=== PATIENT | female | born 1935 | race Caucasian/White ===

== ENCOUNTER 2016-11-22 20:56 | Inpatient (IN) | payer MEDICARE ==
[~2016-11-22] VITALS: Ht 175.3 cm; Wt 65.5 kg
[~2016-11-22 20:56] MED LIST: ASPI-130 PO; BENI20TA25 PO; BIOT10004 PO; CALC600T34 PO; CRAN250C2 OR; EZET10 PO; HYDR-3580 PO; RIVA10 PO; VITA100018 OR; VITATAB43 OR
[2016-11-22 21:19] VITALS: BP 137/82; PULSE 54; RESP 16; TEMP 98.4; O2SAT 96
--- NOTE | 2016-11-22 21:24 | PD ---
HPI Chief Complaint: right knee pain Time Seen by Provider: 21:05 Travel History International Travel<30 days: No Contact w/Intl Traveler<30days: No Traveled to known affect area: No History of Present Illness HPI The patient is a 81-year-old female who presents to the emergency department for right knee pain. The patient states she tripped and fell going down 3 stairs earlier today. The patient states her left leg got caught behind her and she fell on a flexed right knee. The patient does have a history of previous injuries to the right knee and underwent surgery by her orthopedic surgeon, Dr. Chambers. The patient states she initially had pain and was unable to bear weight, however, her pain has improved with morphine 4 mg intravenously by EMS. The patient has been unable to bear any weight on the right leg. The knee pain is located around the knee, does not radiate to the ankle or to the hip. She denies any numbness or tingling to the right lower extremity but does note mild edema. Symptoms are moderate, exacerbated after falling, and there are no current alleviating factors. PFSH Past Medical History Anemia: Yes Cancer: Yes (SKIN) Cardiovascular Problems: Yes Endocrine: No Genitourinary: No Hypertension: Yes Musculoskeletal: Yes ([place]) Neurologic: No Reproductive: No Respiratory: No Menopausal: Yes Past Surgical History Gynecologic Surgery: Yes (HYSTERECTOMY AND FIBROIDS) Hysterectomy: Yes Pacemaker: No Social History Alcohol Use: Yes (1 GLASS CHARDONNAY/NIGHT) Tobacco Use: No Substance Use: No Allergies-Medications (Allergen,Severity, Reaction): Coded Allergies: codeine (Unverified Adverse Reaction, Severe, NAUSEA, 11/15/16) Reported Meds & Prescriptions Reported Meds & Active Scripts Active Reported Zetia (Ezetimibe) 10 Mg Tab 10 Mg PO DAILY Atenolol 25 Mg Tab 25 Mg PO DAILY Review of Systems Except as stated in HPI: all other systems reviewed are Neg General / Constitutional: No: Fever HENT: No: Headaches, Neck Pain Cardiovascular: No: Chest Pain or Discomfort Respiratory: No: Shortness of Breath Gastrointestinal: No: Nausea, Vomiting Musculoskeletal: Positive: Limited ROM, Edema, Pain Neurologic: No: Paresthesia, Sensory Disturbance Physical Exam Narrative GENERAL: Awake, alert, pleasant 81-year-old female who appears her stated age and is in no acute respiratory distress. SKIN: Focused skin assessment warm/dry. HEAD: Atraumatic. Normocephalic. EYES: No injection or drainage. ENT: No nasal bleeding or discharge. Mucous membranes pink and moist. NECK: Trachea midline. No JVD. CARDIOVASCULAR: Regular rate and rhythm. No murmur appreciated. RESPIRATORY: No accessory muscle use. Clear to auscultation. Breath sounds equal bilaterally. GASTROINTESTINAL: Abdomen soft, non-tender, nondistended. MUSCULOSKELETAL: The patient has mild edema of the right knee, patella appears midline, patient has limited ability to flex and extend the knee secondary to pain. Passive range of motion exacerbates her pain. The feet are cool distally , but pulses are present. She is able to move the feet bilaterally, and is able to fully flex the left hip and left knee, but significant limited range of motion of the right hip and knee secondary to pain around the right knee. NEUROLOGICAL: Awake and alert. No obvious cranial nerve deficits. Motor grossly within normal limits. Normal speech. Sensation is intact to soft touch right lower extremity. PSYCHIATRIC: Appropriate mood and affect; insight and judgment normal. Data Data Last Documented VS Vital Signs Date Time Temp Pulse Resp B/P (MAP) Pulse Ox O2 Delivery O2 Flow Rate FiO2 11/22/16 22:50 98.5 60 16 112/55 (74) 96 Room Air Orders Orders Knee, Complete (4vws) (11/22/16 ) Complete Blood Count With Diff (11/22/16 22:01) Comprehensive Metabolic Panel (11/22/16 22:01) Electrocardiogram (11/22/16 ) Chest, Single Ap (11/22/16 ) Type And Screen (11/22/16 22:01) Splinting (11/22/16 ) Morphine Inj (Morphine Inj) (11/22/16 22:30) Fiberglass Long Leg Splint Ad (11/22/16 ) Admit Order (Ed Use Only) (11/22/16 23:07) Labs Laboratory Tests Test 11/22/16 22:10 White Blood Count 7.4 TH/MM3 Red Blood Count 3.45 MIL/MM3 Hemoglobin 11.1 GM/DL Hematocrit 33.0 % Mean Corpuscular Volume 95.8 FL Mean Corpuscular Hemoglobin 32.3 PG Mean Corpuscular Hemoglobin Concent 33.7 % Red Cell Distribution Width 14.1 % Platelet Count 182 TH/MM3 Mean Platelet Volume 7.2 FL Neutrophils (%) (Auto) 80.3 % Lymphocytes (%) (Auto) 11.6 % Monocytes (%) (Auto) 6.7 % Eosinophils (%) (Auto) 0.8 % Basophils (%) (Auto) 0.6 % Neutrophils # (Auto) 6.0 TH/MM3 Lymphocytes # (Auto) 0.9 TH/MM3 Monocytes # (Auto) 0.5 TH/MM3 Eosinophils # (Auto) 0.1 TH/MM3 Basophils # (Auto) 0.0 TH/MM3 CBC Comment DIFF FINAL Differential Comment Blood Urea Nitrogen 22 MG/DL Creatinine 0.87 MG/DL Random Glucose 116 MG/DL Total Protein 6.4 GM/DL Albumin 3.2 GM/DL Calcium Level 8.3 MG/DL Alkaline Phosphatase 40 U/L Aspartate Amino Transf (AST/SGOT) 21 U/L Alanine Aminotransferase (ALT/SGPT) 19 U/L Total Bilirubin 0.6 MG/DL Sodium Level 139 MEQ/L Potassium Level 4.2 MEQ/L Chloride Level 104 MEQ/L Carbon Dioxide Level 28.8 MEQ/L Anion Gap 6 MEQ/L Estimat Glomerular Filtration Rate 62 ML/MIN [facility] Medical Decision Making Medical Screen Exam Complete: Yes Emergency Medical Condition: Yes Medical Record Reviewed: Yes Interpretation(s) X-ray of the right knee reveals distal right femur fracture Chest x-ray reveals questionable nodularity in the right hilar region, recommend CT for further evaluation EKG reveals normal sinus rhythm with a rate of 63. PVC every third beat. Laboratory Tests Test 11/22/16 22:10 White Blood Count 7.4 TH/MM3 Red Blood Count 3.45 MIL/MM3 Hemoglobin 11.1 GM/DL Hematocrit 33.0 % Mean Corpuscular Volume 95.8 FL Mean Corpuscular Hemoglobin 32.3 PG Mean Corpuscular Hemoglobin Concent 33.7 % Red Cell Distribution Width 14.1 % Platelet Count 182 TH/MM3 Mean Platelet Volume 7.2 FL Neutrophils (%) (Auto) 80.3 % Lymphocytes (%) (Auto) 11.6 % Monocytes (%) (Auto) 6.7 % Eosinophils (%) (Auto) 0.8 % Basophils (%) (Auto) 0.6 % Neutrophils # (Auto) 6.0 TH/MM3 Lymphocytes # (Auto) 0.9 TH/MM3 Monocytes # (Auto) 0.5 TH/MM3 Eosinophils # (Auto) 0.1 TH/MM3 Basophils # (Auto) 0.0 TH/MM3 CBC Comment DIFF FINAL Differential Comment Blood Urea Nitrogen 22 MG/DL Creatinine 0.87 MG/DL Random Glucose 116 MG/DL Total Protein 6.4 GM/DL Albumin 3.2 GM/DL Calcium Level 8.3 MG/DL Alkaline Phosphatase 40 U/L Aspartate Amino Transf (AST/SGOT) 21 U/L Alanine Aminotransferase (ALT/SGPT) 19 U/L Total Bilirubin 0.6 MG/DL Sodium Level 139 MEQ/L Potassium Level 4.2 MEQ/L Chloride Level 104 MEQ/L Carbon Dioxide Level 28.8 MEQ/L Anion Gap 6 MEQ/L Estimat Glomerular Filtration Rate 62 ML/MIN Differential Diagnosis Differential diagnosis includes fracture, dislocation, sprain, strain, effusion , contusion. Narrative Course X-ray of the right knee was obtained. X-ray the right knee reveals a distal right femur fracture. Therefore, labs were drawn and sent, IV was established, the patient is placed on cardiac telemetry monitoring continuous pulse ox imaging monitoring. EKG was ordered and interpreted. Chest x-ray was obtained. Type and screen and coags were sent to lab. The patient's distal femur fracture was placed in a posterior long-leg splint, the patient was provided morphine 4 mg intravenously for pain. The on-call medical service will be paged for admission, the patient's orthopedic surgeon is Dr. Chambers. A consult will be placed to Dr. Chambers, routine, for evaluation tomorrow for operative management. The patient will be kept nothing by mouth after midnight. Physician Communication Physician Communication [facility] were paged for admission. I discussed the patient with Dr. Carrizales who agrees with admission. Diagnosis Primary Impression: Closed fracture of right distal femur Qualified Codes: S72.401A - Unspecified fracture of lower end of right femur, initial encounter for closed fracture Admitting Information Admitting Physician Requests: Admit Condition: Stable Vlad Briseno MD Nov 22, 2016 21:24
[2016-11-22] MEDS ORDERED: ATEN25TA PO (21:30)
[2016-11-22] MEDS ORDERED: ZETI10TA5 PO (21:30)
--- NOTE | 2016-11-22 21:55 | RADRPT ---
EXAM DATE/TIME: 11/22/2016 21:29 [facility] COMPARISON: No previous studies available for comparison. INDICATIONS : Right knee pain after fall. MEDICAL HISTORY : None. SURGICAL HISTORY : ORIF right tibia. ENCOUNTER: Initial ACUITY: 1 day PAIN SCORE: 10/10 LOCATION: Right knee. FINDINGS: 3 views of the right knee demonstrate undermineralization of the bones. There is an oblique comminute d displaced fracture of the distal femoral metaphysis and epiphysis. A fracture line extends into the intercondylar notch. The lateral fragment is displaced by approximately 7 mm. No significant joint e ffusion is identified. There is hardware in the proximal tibia on the medial lateral aspect with mult iple interlocking screws likely related to prior tibial plateau fracture repair. The hardware demonst rates no acute finding. No acute soft tissue abnormality is identified. CONCLUSION: 1. Under mineralized bones with oblique comminuted displaced fracture of the distal femoral metaphysi s and epiphysis. Fracture extends into the knee joint and likely into the intercondylar notch. 2. The proximal tibial hardware demonstrates no acute abnormality. Foster Loja MD on November 22, 2016 at 21:51 Board Certified Radiologist. This report was verified electronically.
[2016-11-22] MEDS ORDERED: MORPHINE SULFATE 4 MG/ML INJ IV PUSH ONE (22:30)
[2016-11-22 22:41] LABS: BASOPHIL % 0.6 % (0.0-2.0); EOSINOPHIL # 0.1 TH/MM3 (0-0.4); EOSINOPHIL % 0.8 % (0.0-4.0); HEMO FLAGS DIFF FINAL; LYMPH % 11.6 % (9.0-44.0); LYMPHOCYTE # 0.9 TH/MM3 (1.0-4.8); MEAN CELL VOLUME 95.8 FL (80.0-100.0); MEAN CORPUSCULAR HEMOGLOBIN 32.3 PG (27.0-34.0); MEAN CORPUSCULAR HGB CONC 33.7 % (32.0-36.0); MONO % 6.7 % (0.0-8.0); NEUT % 80.3 % (16.0-70.0); PLATELET COUNT 182 TH/MM3 (150-450); RED BLOOD COUNT 3.45 MIL/MM3 (4.00-5.30); RED CELL DISTRIBUTION WIDTH 14.1 % (11.6-17.2); WHITE BLOOD COUNT 7.4 TH/MM3 (4.0-11.0)
[2016-11-22 22:50] VITALS: BP 112/55; PULSE 60; RESP 16; TEMP 98.5; O2SAT 96; O2SAT 98
--- NOTE | 2016-11-22 22:52 | RADRPT ---
EXAM DATE/TIME: 11/22/2016 22:16 [facility] COMPARISON: No previous studies available for comparison. INDICATIONS : Short of breath. MEDICAL HISTORY : None. SURGICAL HISTORY : None. ENCOUNTER: Initial ACUITY: 1 day PAIN SCORE: 0/10 LOCATION: Bilateral chest FINDINGS: Portable AP view of the chest demonstrates a normal-sized cardiac silhouette. Lungs are underinflated . There is questionable nodularity or air space opacity in the right hilar/infrahilar region. No pneu mothorax or pleural effusion is visualized. There is symmetric biapical scar. There is atelectasis at the lung bases. Bones and soft tissues demonstrate no acute finding. CONCLUSION: Questionable airspace opacity and nodularity overlying the right hilar and infrahilar region. Since n o prior imaging studies available consider chest CT to further evaluate. Foster Loja MD on November 22, 2016 at 22:49 Board Certified Radiologist. This report was verified electronically.
[2016-11-22 22:58] LABS: ALT (GPT) 19 U/L (10-53)
[2016-11-22 23:00] LABS: ALKALINE PHOSPHATASE 40 U/L (45-117); TOTAL BILIRUBIN ADULT 0.6 MG/DL (0.2-1.0)
[2016-11-22 23:05] LABS: ANION GAP 6 MEQ/L (5-15); AST (GOT) 21 U/L (15-37); BICARBONATE 28.8 MEQ/L (21.0-32.0); BLOOD UREA NITROGEN 22 MG/DL (7-18); CHLORIDE 104 MEQ/L (98-107); GLOMERULAR FILTRATION RATE 62 ML/MIN (>89); POTASSIUM 4.2 MEQ/L (3.5-5.1); SODIUM (NA) 139 MEQ/L (136-145)
[2016-11-23] VITALS (7 sets, daily range): BP systolic 97–150; BP diastolic 45–62; PULSE 60–79; RESP 16–18; TEMP 96.3–97.5; O2SAT 94–100
[2016-11-23] MEDS ORDERED: SODIUM CHLORIDE 0.9% FLUSH 10 ML FLUSH IV FLUSH PRN
[2016-11-23] MEDS ORDERED: ONDANSETRON HCL 4 MG/2 ML VIAL IVP PRN
[2016-11-23] MEDS ORDERED: MORPHINE SULFATE 4 MG/ML INJ IV PUSH ONE
[2016-11-23] MEDS ORDERED: SODIUM CHLORID 0.9% 500 ML IV PRN (01:45)
[2016-11-23] MEDS ORDERED: LACTATED RINGER'S 1000 ML IV PRN (01:45)
[2016-11-23] MEDS ORDERED: CHLORHEXIDINE GLUCONATE 2 % 1 PACK (2 CLOTHS) TOPICAL PRN (01:45)
[2016-11-23] MEDS ORDERED: POVIDONE IODINE 5% (ANTISEPSIS KIT) 4 APPLICATIONS EACH NARE PRN (01:45)
[2016-11-23] MEDS ORDERED: INSULIN HUMAN REGULAR 1,000 UNITS/10 ML VIAL SQ PRN (01:45)
[2016-11-23] MEDS ORDERED: METOPROLOL TARTRATE 25 MG TAB PO PRN (01:45)
--- NOTE | 2016-11-23 04:45 | HHI.HP ---
HPI Service [facility] Primary Care Physician No Primary Care Physician Admission Diagnosis distal right femur fracture Diagnoses: (1) Closed fracture of right distal femur (2) PVC's (premature ventricular contractions) Chief Complaint: Right leg pain following fall at home Travel History International Travel<30 Days: No Contact w/Intl Traveler <30 Da: No Traveled to Known Affected Are: No History of Present Illness Written by Annelise Nayak, acting as scribe for Dr. Carrizales on 11/23/16 at 04:45. Coming down some steps, wearing socks, slipped because of socks, and fell down. She had family call 911 and was brought here. She had a previous repair by Dr. Chambers. She denies any syncope or head injury associated with the fall. She had severe right leg pain following the fall. Denies any CP, palpitations, dizziness, diaphoresis, and nausea prior to fall. Past couple of weeks: denies fever, nausea, vomiting, diarrhea, shortness of breath, hematuria, black or bloody stool, chest pain, or diaphoresis. . Review of Systems Except as stated in HPI: all other systems reviewed are Neg Past Family Social History Past Medical History Hypertension PVCs - on atenolol Hyperlipidemia Skin cancer GERD/heartburn Denies CAD, CHF, atrial fibrillation, COPD, asthma, emphysema, liver problems, DVT, PE, CVA, seizures, or thyroid problems . Past Surgical History Right wrist and elbow surgery Right tibia and fibula repair about four years ago Skin scraping done 2 weeks ago - one basal cell, one was precancerous Hysterectomy . Reported Medications Vitamins Vitamin D3 Reported Meds & Active Scripts Active Reported Zetia (Ezetimibe) 10 Mg Tab 10 Mg PO DAILY Atenolol 25 Mg Tab 25 Mg PO DAILY . Allergies: Coded Allergies: codeine (Unverified Adverse Reaction, Severe, NAUSEA, 11/15/16) Active Ordered Medications Current Medications Morphine Sulfate (Morphine Inj) 4 mg ONCE ONCE IV PUSH Last administered on t 22:54; Start 11/22/16 at 22:30; Stop 11/22/16 at 22:31; Status DC Sodium Chloride (NS Flush) 2 ml UNSCH PRN IV FLUSH FLUSH AFTER USING IV ACCESS ; Start 11/23/16 at 00:00 Sodium Chloride (NS Flush) 2 ml BID IV FLUSH ; Start 11/23/16 at 09:00 Ondansetron HCl (Zofran Inj) 4 mg Q6H PRN IVP NAUSEA OR VOMITING Last administered on 11/23/16 00:17; Start 11/23/16 at 00:00 Naloxone HCl (Narcan Inj) 0.4 mg UNSCH PRN IV SEE LABEL COMMENTS; Start at 00:00 Morphine Sulfate (Morphine Inj) 4 mg ONCE ONCE IV PUSH Last administered on 00:17; Start 11/23/16 at 00:00; Stop 11/23/16 at 00:01; Status DC Lactated Ringer's 1,000 ml @ 30 mls/hr Q24H PRN IV SEE LABEL COMMENTS; Start at 01:45; Stop 11/26/16 at 01:44 Sodium Chloride 500 ml @ 30 mls/hr [id number] PRN IV SEE LABEL COMMENTS; Start at 01:45; Stop 11/26/16 at 01:44 Metoprolol Tartrate (Lopressor) 25 mg RN SUPPORT SERVICES PRN PO SEE LABEL COMMENTS; Start 11/23/16 at 01:45; Stop 11/26/16 at 01:44 Povidone Iodine (Betadine 5% Antisepsis Kit) 1 applic RN SUPPORT SERVICES PRN EACH NARE SEE LABEL COMMENTS; Start 11/23/16 at 01:45; Stop 11/26/16 at 01:44 Chlorhexidine Gluconate (Chlorhexidine 2% Cloth) 3 pack RN SUPPORT SERVICES PRN TOPICAL SEE LABEL COMMENTS; Start 11/23/16 at 01:45; Stop 11/26/16 at 01:44 Insulin Human Regular (NovoLIN R INJ) See Protocol Table ... RN SUPPORT SERVICES PRN SQ SEE PROTOCOL TABLE; Start 11/23/16 at 01:45; Stop 11/26/16 at 01:44 . Family History Father IN Mother lived to age 93, from complications related to aging . Social History Tobacco: denies Alcohol: denies Illicit Drugs: denies . Physical Exam Vital Signs Vital Signs Date Time Temp Pulse Resp B/P (MAP) Pulse Ox O2 Delivery O2 Flow Rate FiO2 11/23/16 01:30 96.7 79 18 118/55 (76) 98 11/22/16 22:50 98.5 60 16 112/55 (74) 98 Room Air 11/22/16 21:19 98.4 54 16 137/82 (100) 96 Physical Exam GENERAL: This is an elderly female patient who appears younger than her stated age, in no apparent distress. SKIN: No rashes. Cool and dry. Left chest, erythema, right chest appears to have punch biopsy site - do not appear infected. HEAD: Atraumatic. Normocephalic. EYES: No scleral icterus. No injection or drainage. ENT: Nose without bleeding, purulent drainage. NECK: Trachea midline. No JVD. CARDIOVASCULAR: Regular rate and rhythm without murmurs, gallops, or rubs. RESPIRATORY: Clear to auscultation. Breath sounds equal bilaterally. No wheezes , rales, or rhonchi. GASTROINTESTINAL: Abdomen soft, non-tender, nondistended. No guarding. MUSCULOSKELETAL: Extremities without clubbing, cyanosis, or edema. No calf tenderness. NEUROLOGICAL: Awake and alert. Motor and sensory grossly within normal limits. Normal speech. . Laboratory Laboratory Tests Test 11/22/16 22:10 White Blood Count 7.4 Red Blood Count 3.45 Hemoglobin 11.1 Hematocrit 33.0 Mean Corpuscular Volume 95.8 Mean Corpuscular Hemoglobin 32.3 Mean Corpuscular Hemoglobin Concent 33.7 Red Cell Distribution Width 14.1 Platelet Count 182 Mean Platelet Volume 7.2 Neutrophils (%) (Auto) 80.3 Lymphocytes (%) (Auto) 11.6 Monocytes (%) (Auto) 6.7 Eosinophils (%) (Auto) 0.8 Basophils (%) (Auto) 0.6 Neutrophils # (Auto) 6.0 Lymphocytes # (Auto) 0.9 Monocytes # (Auto) 0.5 Eosinophils # (Auto) 0.1 Basophils # (Auto) 0.0 CBC Comment DIFF FINAL Differential Comment Blood Urea Nitrogen 22 Creatinine 0.87 Random Glucose 116 Total Protein 6.4 Albumin 3.2 Calcium Level 8.3 Alkaline Phosphatase 40 Aspartate Amino Transf (AST/SGOT) 21 Alanine Aminotransferase (ALT/SGPT) 19 Total Bilirubin 0.6 Sodium Level 139 Potassium Level 4.2 Chloride Level 104 Carbon Dioxide Level 28.8 Anion Gap 6 Estimat Glomerular Filtration Rate 62 Result Diagram: 11/22/16 2210 11/22/16 2210 Imaging Last Impressions Knee X-Ray 11/22/16 0000 Signed Impressions: Service Date/Time: Tuesday, November 22, 2016 21:29 - CONCLUSION: 1. Under mineralized bones with oblique comminuted displaced fracture of the distal femoral metaphysis and epiphysis. Fracture extends into the knee joint and likely into the intercondylar notch. 2. The proximal tibial hardware demonstrates no acute abnormality. Foster Loja MD . Caprini VTE Risk Assessment Caprini VTE Risk Assessment: Mod/High Risk (score >= 2) Caprini Risk Assessment Model Point Value = 1 Point Value = 2 Point Value = 3 Point Value = 5 Age 41-60 Minor surgery BMI > 25 kg/m2 Swollen legs Varicose veins or History of unexplained or recurrent spontaneous Oral contraceptives or hormone replacement Sepsis (< 1 month) Serious lung disease, including pneumonia (< 1 month) Abnormal pulmonary function Acute myocardial infarction Congestive heart failure (< 1 month) History of inflammatory bowel disease Medical patient at bed rest Age 61-74 Arthroscopic surgery Major open surgery (> 45 min) Laparoscopic surgery (> 45 min) Malignancy Confined to bed (> 72 hours) Immobilizing plaster cast Central venous access Age >= 75 History of VTE Family history of VTE Factor V Leiden Prothrombin [id number] Lupus anticoagulant Anticardiolipin antibodies Elevated serum homocysteine Heparin-induced thrombocytopenia Other congenital or acquired thrombophilia Stroke (< 1 month) Elective arthroplasty Hip, pelvis, or leg fracture Acute spinal cord injury (< 1 month) Prophylaxis Regimen Total Risk Factor Score Risk Level Prophylaxis Regimen 0-1 Low Early ambulation 2 Moderate Order ONE of the following: *Sequential Compression Device (SCD) *Heparin 5000 units SQ BID 3-4 Higher Order ONE of the following medications: *Heparin 5000 units SQ TID *Enoxaparin/Lovenox 40 mg SQ daily (WT < 150 kg, CrCl > 30 mL/min) *Enoxaparin/Lovenox 30 mg SQ daily (WT < 150 kg, CrCl > 10-29 mL/min) *Enoxaparin/Lovenox 30 mg SQ BID (WT < 150 kg, CrCl > 30 mL/min) AND/OR *Sequential Compression Device (SCD) 5 or more Highest Order ONE of the following medications: *Heparin 5000 units SQ TID (Preferred with Epidurals) *Enoxaparin/Lovenox 40 mg SQ daily (WT < 150 kg, CrCl > 30 mL/min) *Enoxaparin/Lovenox 30 mg SQ daily (WT < 150 kg, CrCl > 10-29 mL/min) *Enoxaparin/Lovenox 30 mg SQ BID (WT < 150 kg, CrCl > 30 mL/min) AND *Sequential Compression Device (SCD) Assessment and Plan Problem List: (1) Closed fracture of right distal femur ICD Code: S72.401A - Unspecified fracture of lower end of right femur, initial encounter for closed fracture Status: Acute (2) PVC's (premature ventricular contractions) ICD Code: I49.3 - Ventricular premature depolarization Assessment and Plan Closed fracture of the right distal femur - Consult orthopedic surgeon - Dr. Chambers - NPO History of PVCs - continuous cardiac telemetry to monitor for cardiac arrhythmia - continue home atenolol Hyperlipidemia - continue home zetia Chest wall skin scrapping site - monitor for healing/infection - consult wound care nurse if needed DVT prophylaxis - TEDs/SCDs for now - chemical prophylaxis post op This note was transcribed by kristen [Annelise Nayak]. I, Dr. Dank Carrizales personally performed the history, physical exam, and medical decision making; and confirmed the accuracy of the information in the transcribed note. Authenticated by Dr. Dank Carrizales on 11/23/16 at 04:45. . Discussed Condition With ER physician, RN, patient, and patient's Physician Certification 2 Midnight Certification Type: Admission for Inpatient Services Order for Inpatient Services The services are ordered in accordance with Medicare regulations or non- Medicare payer requirements, as applicable. In the case of services not specified as inpatient-only, they are appropriately provided as inpatient services in accordance with the 2-midnight benchmark. Estimated LOS (days): 3 days is the estimated time the patient will need to remain in the hospital, assuming treatment plan goals are met and no additional complications. Post-Hospital Plan: Not yet determined Problem Qualifiers (1) Closed fracture of right distal femur: Qualified Codes: S72.401A - Unspecified fracture of lower end of right femur, initial encounter for closed fracture Annelise Nayak Nov 23, 2016 04:45 Dank Carrizales MD Nov 23, 2016 06:52
[2016-11-23] MEDS ORDERED: VANCOMYCIN HCL 1000 MG VIAL ONE (07:01)
[2016-11-23] MEDS ORDERED: SODIUM CHLOR 0.9% 250 ML INJ 250 ML ONE (07:01)
[2016-11-23] MEDS ORDERED: GENTAMICIN SULFATE 80 MG/2 ML VIAL ONE (07:01)
--- NOTE | 2016-11-23 07:18 | MB ---
cc: ROBINJAY DATE OF CONSULTATION 11/23/2016 DATE OF ADMISSION 11/22/2016 REASON FOR CONSULTATION Right distal femur fracture. CONSULTING PHYSICIAN Dr. Lowell Cespedes HISTORY Anita is an 81-year-old female who was walking down steps. She was in socks. She slipped because of the socks. She had immediate right leg pain. She also had deformity of her right knee. She presented to the emergency room where x-rays revealed a displaced right distal femur fracture. She is currently awake and alert on the orthopedic floor. On complaint is her right knee. She has not hit her head. She had no dizziness or syncope. Pain is worse with movement. PAST MEDICAL HISTORY ILLNESSES 1. Hypertension 2. History of PVCs. 3. High cholesterol 4. History of skin cancer 5. Reflux SURGERIES 1. Right tibia ORIF 2. Hysterectomy 3. Right wrist and elbow surgery. MEDICATIONS Medications include: 1. Multivitamins 2. Vitamin D3 3. Zetia 4. Atenolol ALLERGIES CODEINE FAMILY HISTORY Positive for myocardial infarction in a father. Her mother lived to age 93. SOCIAL HISTORY The patient denies alcohol, tobacco or drug use. She lives at home with her . REVIEW OF SYSTEMS The patient denies headache, visual changes, neck pain, chest pain, shortness of breath, abdominal pain, asthma or recent weight loss. She complains of right knee pain. PHYSICAL EXAMINATION The patient is a well-developed, well-nourished 81-year female in no acute distress. She is awake and alert. She is alert and oriented x3. VITAL SIGNS: Temperature 97.0, pulse 69, respirations 18, blood pressure 150/62, O2 sat is 94% on room air. HEAD: The patient is normocephalic. EYES: Pupils are equal. NECK: Soft, nontender. Trachea is midline. ABDOMEN: Soft, nontender, nondistended. EXTREMITIES: Examination of bilateral upper extremities reveals no pain with shoulder, elbow or wrist motion. Skin is intact in both hands. Radial pulses are palpable. Engineering Associate strength is +5. Examination of the left leg reveals no pain with hip, knee or ankle motion. Skin is intact. Dorsalis pedis pulses palpable. Skin is intact. Examination of the right leg reveals no tenderness her hip. She is diffusely tender around the knee. There is mild swelling present. She has pain with any knee motion. Calf and thigh compartments are soft. Dorsalis pedis pulses are palpable. Sensation is intact in the right foot. X-RAYS X-rays of right knee reviewed. X-rays reveal an intra-articular right distal femur supracondylar fracture. IMPRESSION 1. Right distal femur intra-articular fracture. 2. Probable osteoporosis 3. Hypertension PLAN Treatment options were discussed with the patient. At this point, I would recommend open reduction, internal fixation of right distal femur. The risks of surgery include bleeding, infection, injury to arteries, nerves and blood vessels, nonunion, malunion, painful hardware as well as medical complications including blood clot, stroke, heart attack and . All questions were answered. I will plan on surgery today. A mid-level provider in my office, nurse practitioner or PA, may see this patient on a follow-up basis and continue to implement the objective of this plan including: Starting or adjusting medications, injections of muscle, tendon, bursa or joints, cast application, orthotic or brace application, physical therapy, further radiographic studies including x-ray, MRI, CT, ultrasounds or bone scan, vascular studies, neurologic studies, or other specialist consultations, and proceeding with surgical management as appropriate. MD NICHOLAS Barrett/PONCHO /6:56 AM /7:07 AM
[2016-11-23] MEDS ORDERED: FAMOTIDINE 20 MG/2 ML VIAL ONE (07:20)
[2016-11-23] MEDS ORDERED: MIDAZOLAM HCL 2 MG/2 ML VIAL ONE (07:20)
[2016-11-23] MEDS ORDERED: TRANEXAMIC ACID IV SCH (07:30)
[2016-11-23] MEDS ORDERED: SODIUM CHLORIDE 0.9% IV SCH (07:30)
[2016-11-23] MEDS ORDERED: ceFAZolin INJ 1,000 MG VIAL ONE (08:39)
[2016-11-23] MEDS ORDERED: MISCELLANEOUS NURSING INFORMATION XX PRN (09:15)
[2016-11-23] MEDS ORDERED: Post-op Orders (for Pharmacy) MISC XX ONE (09:15)
[2016-11-23] MEDS ORDERED: SODIUM CHLORIDE 0.9% FLUSH 5 ML FLUSH IVF PRN (09:15)
[2016-11-23] MEDS ORDERED: NALOXONE HCL 0.4 MG/ML AMP IV PRN ×2 (09:15)
[2016-11-23] MEDS ORDERED: MORPHINE SULFATE 4 MG/ML INJ IV PUSH PRN (09:15)
[2016-11-23] MEDS ORDERED: diphenhydrAMINE HCL 25 MG CAP PO PRN (09:15)
--- NOTE | 2016-11-23 09:18 | PD.OP ---
cc: Shorty Browne MD Operative Report Date of Surgery: Nov 23, 2016 Preoperative Diagnosis: Displaced right distal femur intra-articular supracondylar fracture Postoperative Diagnosis: Procedure: Open reduction internal fixation right distal femur intra-articular fracture Anesthesia: Spinal Surgeon: Shorty Browne Joinery Setter Out(s): Jaspal Solano PA-C The surgical procedure was assisted by my physician paraprofessional education assistant. My P.A. presence was necessary throughout this case for the manipulation and positioning of the surgical extremity. My P.A. was assisting me throughout the duration of this procedure. The skill set of a physician paraprofessional education assistant was medically necessary to complete this procedure. During the surgical case the compounding technician was working at the back table and the physician paraprofessional education assistant was directly assisting me. Operation and Findings: Anita was seen and evaluated preoperatively. She was found to have a displaced right distal femur intra-articular fracture. Informed consent was obtained, operative site was marked. Patient was brought to the OR, placed on OR table, and given IV sedation with GETA. IV antibiotics were administered and timeout procedure was performed. The operative leg was prepped with alcohol , followed with Hibiclens, draped in usual sterile fashion. A timeout procedure was performed. The procedure began with a -inch incision over the lateral aspect of the right distal femur. Subcutaneous tissue was dissected with Bovie. Iliotibial band was split in line with fibers. At this point the fracture was visualized. Traction was applied. Fracture was manipulated. Lateral condyle fragment was reduced first. This keyed into anatomic position along the shaft. The articular surface was now visualized. The medial condyle was now reduced to the lateral condyle. This also keyed into anatomic alignment. Steinmann pins were used to hold provisional fixation. A periarticular clamp was used to compress the medial and lateral condyles together. The fracture reduced into excellent alignment. Steinmann pins were used to hold provisional fixation. At this point attention was turned to plate placement. An ITS lateral condylar plate was selected and attached to the insertion handle jig. The plate was placed underneath the vastus lateralis. Steinmann pins were used to hold the plate to bone. Multiplanar fluoroscopy confirmed appropriate placement of plate. Multiple 4.5 cortical screws were now placed in percutaneous fashion through the plate. The plate was compressed to bone. Multiple locking screws were now placed in the distal segment of the distal femur. Additional locking screws were placed into the femoral shaft. All screws were predrilled and premeasured for appropriate length. Final fluoroscopy revealed excellent alignment of fracture with well-placed hardware. Wound was thoroughly irrigated. Fascia was closed with #1 Vicryl. Subcutaneous tissue was closed with 3-0 Vicryl. Skin was closed with nubia. Sterile dressings were applied. The patient was placed into a knee immobilizer and transferred to recovery in stable condition. Needle and sponge counts were correct. Shorty Browne MD Nov 23, 2016 09:18
[2016-11-23] MEDS ORDERED: DO NOT ADM ANY ANTICOAGULANT DRUGS PRN (09:19)
[2016-11-23] MEDS ORDERED: WALKER/ADULT/FO1 MIS (09:22)
[2016-11-23] MEDS ORDERED: CALCTAB19 PO (09:22)
[2016-11-23] MEDS ORDERED: VITA2000 PO (09:22)
[2016-11-23] MEDS ORDERED: HYDR-3580 PO (09:22)
[2016-11-23] MEDS ORDERED: XARE10TA PO (09:22)
[2016-11-23] MEDS ORDERED: ERGO1CAP30 PO (09:22)
[2016-11-23] MEDS: LACTATED RINGER'S 1000 ML INJ 1,000 ML IV SCH ×2 (10:00→19:59)
[2016-11-23] MEDS: CALCIUM/VITAMIN D 250 MG/125 U TAB PO SCH ×2 (11:41→17:44)
[2016-11-23] MEDS: ACETAMINOPHEN/HYDROcodone 325 MG/7.5 MG TAB PO PRN (11:42)
--- NOTE | 2016-11-23 12:13 | RADRPT ---
EXAM DATE/TIME: 11/23/2016 08:47 [facility] COMPARISON: No previous studies available for comparison. INDICATIONS : Reduction with screw and plate placement right distal femur. MEDICAL HISTORY : displaced fracture of the distal femoral SURGICAL HISTORY : Orif rt tib fib. ENCOUNTER: Subsequent ACUITY: 2 days PAIN SCORE: Non-responsive. LOCATION: Right Femur. FINDINGS: 6 spot intraoperative fluoroscopic views of the right femur demonstrate plate and screw fixation of t he distal femur across a comminuted distal femoral metaphyseal fracture with excellent alignment. Johnnie te and screw fixation of the proximal tibia is also noted. CONCLUSION: Postoperative changes. Zoltan Jett MD on November 23, 2016 at 12:10 Board Certified Radiologist. This report was verified electronically.
[2016-11-23] MEDS ORDERED: PHENYLEPH/NS 1000 MCG/10 ML SYR IV ONE (15:05)
[2016-11-23] MEDS ORDERED: ONDANSETRON HCL 4 MG/2 ML VIAL IV PUSH ONE (15:05)
[2016-11-23] MEDS ORDERED: PROPOFOL 200 MG/20 ML AMP IV ONE (15:05)
[2016-11-23] MEDS ORDERED: ePHEDrine/NS 25 MG/5 ML SYR IV ONE (15:05)
[2016-11-23] MEDS ORDERED: SODIUM CHLOR 0.9% 250 ML INJ 250 ML IV ONE (15:05)
[2016-11-23] MEDS ORDERED: LACTATED RINGER'S 1000 ML INJ 1,000 ML IV ONE (15:05)
[2016-11-23 15:18] LABS: AUTOMATED NEUTROPHIL # 6.5 TH/MM3 (1.8-7.7); BASOPHIL % 0.4 % (0.0-2.0); EOSINOPHIL % 0.3 % (0.0-4.0); HEMATOCRIT 27.8 % (35.0-46.0); HEMO FLAGS DIFF FINAL; LYMPH % 9.4 % (9.0-44.0); LYMPHOCYTE # 0.7 TH/MM3 (1.0-4.8); MEAN CELL VOLUME 96.6 FL (80.0-100.0); MEAN CORPUSCULAR HEMOGLOBIN 31.7 PG (27.0-34.0); MEAN CORPUSCULAR HGB CONC 32.8 % (32.0-36.0); NEUT % 82.9 % (16.0-70.0); PLATELET COUNT 159 TH/MM3 (150-450); RED BLOOD COUNT 2.87 MIL/MM3 (4.00-5.30); RED CELL DISTRIBUTION WIDTH 14.1 % (11.6-17.2); WHITE BLOOD COUNT 7.9 TH/MM3 (4.0-11.0)
[2016-11-23 15:42] LABS: BICARBONATE 28.4 MEQ/L (21.0-32.0); POTASSIUM 4.1 MEQ/L (3.5-5.1)
[2016-11-23] MEDS: ceFAZolin 2 GM PREMIX 50 ML IV SCH (17:43)
[2016-11-23] MEDS: EZETIMIBE 10 MG TAB PO SCH (17:44)
[2016-11-23] MEDS: ATENOLOL 25 MG TAB PO SCH (17:44)
--- NOTE | 2016-11-23 19:42 | EKG ---
Date Performed: 11/22/2016 Time Performed: 23:06:35 PTAGE: 81 years EKG: Sinus rhythm WITH FREQUENT VENTRICULAR PREMATURE COMPLEXES ABNORMAL RHYTHM ECG PREVIOUS TRACING : 08/23/2011 01.46 Compared to the previous tracing PVCs present DOCTOR: Sejal Byrd Interpretating Date/Time 11/23/2016 19:41:34
[2016-11-23] MEDS: DOCUSATE SODIUM 50 MG/SENNA 8.6 MG TAB PO SCH (19:55)
[2016-11-23] MEDS: VANCOMYCIN INJ 1,000 MG in SODIUM CHLOR 0.9% 250 ML INJ 250 ML IV SCH (19:55)
[2016-11-23] MEDS: SODIUM CHLORIDE 0.9% FLUSH 5 ML FLUSH IVF SCH (19:55)
[2016-11-23] MEDS: SODIUM CHLORIDE 0.9% FLUSH 10 ML FLUSH IV FLUSH SCH ×2 (19:55→19:56)
[2016-11-24] VITALS (7 sets, daily range): BP systolic 109–131; BP diastolic 55–60; PULSE 56–81; RESP 16–17; TEMP 96.7–99; O2SAT 95–100
[2016-11-24] MEDS: ceFAZolin 2 GM PREMIX 50 ML IV SCH ×3 (00:51→17:37)
[2016-11-24] MEDS ORDERED: BACITRACIN TOP OINT 15 GM TUBE TOPICAL PRN (03:00)
--- NOTE | 2016-11-24 06:51 | PD.ORT.PN ---
Subjective Subjective Remarks POD 1 s/p ORIF right distal femur fx -doing well. reports pain but controlled. has not been out of bed yet Objective Vitals Vital Signs Date Time Temp Pulse Resp B/P (MAP) Pulse Ox O2 Delivery O2 Flow Rate FiO2 11/24/16 03:57 56 11/24/16 03:51 96.7 81 17 120/57 (78) 97 11/23/16 23:15 96.3 77 18 102/52 (69) 95 11/23/16 20:00 97.5 60 17 107/52 (70) 99 11/23/16 16:00 96.6 73 16 97/51 (66) 100 11/23/16 13:37 99 Nasal Cannula 2.00 11/23/16 12:00 96.6 70 16 105/45 (65) 99 11/23/16 10:45 97.8 67 20 131/60 (83) 99 Nasal Cannula 2 11/23/16 10:30 67 27 120/58 (78) 100 Nasal Cannula 2 11/23/16 10:15 69 27 135/61 (85) 100 Nasal Cannula 2 11/23/16 10:00 96.8 69 24 124/55 (78) 100 Nasal Cannula 2 11/23/16 09:45 69 12 120/58 (78) 100 Nasal Cannula 2 11/23/16 09:30 69 12 109/59 (76) 100 Nasal Cannula 2 11/23/16 09:22 96.2 73 16 109/57 (74) 99 Nasal Cannula 2 I/O 11/23/16 11/23/16 11/23/16 11/24/16 11/24/16 11/24/16 07:00 15:00 23:00 07:00 15:00 23:00 Intake Total 0 ml 2144.6 ml 480 ml 360 ml Output Total 925 ml 300 ml 500 ml Balance 0 ml 1219.6 ml 180 ml -140 ml Intake Oral 0 ml 510 ml 480 ml 360 ml IV Total 184.6 ml Other 1450 ml Output Urine Total 725 ml 300 ml 500 ml Estimated Blood Loss 200 ml # Voids 0 # Bowel Movements 0 1 0 0 Result Diagram: 11/23/16 1340 11/23/16 1340 Objective Remarks RLE: dressings clean and dry. intact. +CKS/ NVI with good dorsiflexion. neg paola. Assessment & Plan Assessment and Plan 1) Right Distal Femur Fx s/p ORIF - POD 1 -NWB -PROM 0-90 -no quad sets or leg lifts -daily dressing changes POD 2 -knee brace at all times except for PT -DVT prophylaxis -CM for DC planning to SNF -f/u with Trish or ZEYAD in 2 weeks Jaspal Solano Nov 24, 2016 06:51
[2016-11-24 07:04] LABS: BICARBONATE 30.3 MEQ/L (21.0-32.0); POTASSIUM 4.4 MEQ/L (3.5-5.1)
[2016-11-24 07:11] LABS: HEMATOCRIT 25.4 % (35.0-46.0); MEAN CELL VOLUME 95.8 FL (80.0-100.0); MEAN CORPUSCULAR HEMOGLOBIN 32.4 PG (27.0-34.0); MEAN CORPUSCULAR HGB CONC 33.8 % (32.0-36.0); PLATELET COUNT 143 TH/MM3 (150-450); RED BLOOD COUNT 2.65 MIL/MM3 (4.00-5.30); RED CELL DISTRIBUTION WIDTH 13.9 % (11.6-17.2); REVIEW FLAG FINAL; WHITE BLOOD COUNT 5.5 TH/MM3 (4.0-11.0)
[2016-11-24] MEDS: VANCOMYCIN INJ 1,000 MG in SODIUM CHLOR 0.9% 250 ML INJ 250 ML IV SCH ×2 (08:17→20:23)
[2016-11-24] MEDS: EZETIMIBE 10 MG TAB PO SCH (08:19)
[2016-11-24] MEDS: CALCIUM/VITAMIN D 250 MG/125 U TAB PO SCH ×3 (08:19→17:37)
[2016-11-24] MEDS: ATENOLOL 25 MG TAB PO SCH (08:19)
[2016-11-24] MEDS: DOCUSATE SODIUM 50 MG/SENNA 8.6 MG TAB PO SCH ×2 (08:19→20:23)
[2016-11-24] MEDS: SODIUM CHLORIDE 0.9% FLUSH 10 ML FLUSH IV FLUSH SCH ×2 (08:20→20:23)
[2016-11-24] MEDS: SODIUM CHLORIDE 0.9% FLUSH 5 ML FLUSH IVF SCH ×2 (08:21→20:17)
[2016-11-24] MEDS: ENOXAPARIN SODIUM 30 MG/0.3 ML SYRINGE SQ SCH (08:21)
[2016-11-24] MEDS: CHOLECALCIFEROL (VIT D3) 1000 UNIT TAB PO SCH (08:21)
[2016-11-24] MEDS ORDERED: ERGOCALCIFEROL (VIT D2) 50,000 UNIT CAP PO SCH (09:00)
--- NOTE | 2016-11-24 09:45 | HHI.PR ---
Subjective Remarks Hemoglobin levels 8.6 today. Sodium levels 136 which shows no drop. Patient has a propensity to weigh sodium. Objective Vital Signs Date Time Temp Pulse Resp B/P (MAP) Pulse Ox O2 Delivery O2 Flow Rate FiO2 11/24/16 03:57 56 11/24/16 03:51 96.7 81 17 120/57 (78) 97 11/23/16 23:15 96.3 77 18 102/52 (69) 95 11/23/16 20:00 97.5 60 17 107/52 (70) 99 11/23/16 16:00 96.6 73 16 97/51 (66) 100 11/23/16 13:37 99 Nasal Cannula 2.00 11/23/16 12:00 96.6 70 16 105/45 (65) 99 11/23/16 10:45 97.8 67 20 131/60 (83) 99 Nasal Cannula 2 11/23/16 10:30 67 27 120/58 (78) 100 Nasal Cannula 2 11/23/16 10:15 69 27 135/61 (85) 100 Nasal Cannula 2 11/23/16 10:00 96.8 69 24 124/55 (78) 100 Nasal Cannula 2 11/23/16 09:45 69 12 120/58 (78) 100 Nasal Cannula 2 I/O 11/23/16 11/23/16 11/23/16 11/24/16 11/24/16 11/24/16 06:59 14:59 22:59 06:59 14:59 22:59 Intake Total 0 ml 2144.6 ml 480 ml 360 ml Output Total 925 ml 300 ml 500 ml Balance 0 ml 1219.6 ml 180 ml -140 ml Intake Oral 0 ml 510 ml 480 ml 360 ml IV Total 184.6 ml Other 1450 ml Output Urine Total 725 ml 300 ml 500 ml Estimated Blood Loss 200 ml # Voids 0 # Bowel Movements 0 1 0 0 Result Diagram: 11/24/1641411/24/16414 Objective Remarks GENERAL: NAD, A&Ox3 HEAD: Normocephalic. NECK: Supple, trachea midline. No lymphadenopathy. EYES: No scleral icterus. No injection or drainage. CARDIOVASCULAR: Regular rate and rhythm without murmurs, gallops, or rubs. RESPIRATORY: Breath sounds equal bilaterally. No accessory muscle use. GASTROINTESTINAL: Abdomen soft, non-tender, nondistended. MUSCULOSKELETAL: No cyanosis, or edema. Right leg in brace. SKIN: Warm and dry. NEURO: No focal neurological deficitis. A/P Problem List: (1) Hyponatremia syndrome ICD Code: E87.1 - Hypo-osmolality and hyponatremia (2) Postoperative anemia ICD Code: D64.9 - Anemia, unspecified (3) Closed fracture of right distal femur ICD Code: S72.401A - Unspecified fracture of lower end of right femur, initial encounter for closed fracture Status: Acute (4) PVC's (premature ventricular contractions) ICD Code: I49.3 - Ventricular premature depolarization Assessment and Plan Assessment and plan 81-year-old female admitted with right femur fracture now status post surgical repair Closed fracture of the right distal femur Status post surgical repair of right femur fracture Orthopedics following PT continued Postop wound care As needed pain treatments Anticipate discharge to rehabilitation facility History of PVCs Follow on telemetry Continue atenolol with parameters not to give if systolic blood pressure less than 110 mmHg Hyperlipidemia Continue Zetia Follow as an outpatient History of hyponatremia Hyponatremia syndrome (chronic) Follow sodium levels Continue baseline fluid restriction Chest wall skin scrapping site Follow clinically DVT prophylaxis Lovenox Problem Qualifiers (1) Closed fracture of right distal femur: Qualified Codes: S72.401A - Unspecified fracture of lower end of right femur, initial encounter for closed fracture Lowell Cespedes MD Nov 24, 2016 09:45
[2016-11-24] MEDS: LACTATED RINGER'S 1000 ML INJ 1,000 ML IV SCH ×2 (10:06→22:39)
[2016-11-24] MEDS: ACETAMINOPHEN/HYDROcodone 325 MG/7.5 MG TAB PO PRN (11:50)
[2016-11-25] VITALS: BP 108/51; PULSE 65; RESP 17; TEMP 98.6; O2SAT 97
[2016-11-25] MEDS: ceFAZolin 2 GM PREMIX 50 ML IV SCH ×2 (01:24→09:41)
[2016-11-25] MEDS: ACETAMINOPHEN/HYDROcodone 325 MG/7.5 MG TAB PO PRN ×2 (03:18→11:22)
[2016-11-25 04:00] VITALS: BP 113/54; PULSE 76; RESP 16; TEMP 98.6; O2SAT 94
--- NOTE | 2016-11-25 07:06 | PD.ORT.PN ---
Subjective Subjective Remarks Postop day #2 status post ORIF right distal femur. Patient is comfortable. Pain well-controlled Objective Vitals Vital Signs Date Time Temp Pulse Resp B/P (MAP) Pulse Ox O2 Delivery O2 Flow Rate FiO2 11/25/16 04:00 98.6 76 16 113/54 (73) 94 11/25/16 00:00 98.6 65 17 108/51 (70) 97 11/24/16 20:00 97.9 73 16 122/57 (78) 95 11/24/16 15:45 98.4 63 16 109/55 (73) 96 11/24/16 11:55 99.0 67 16 131/60 (83) 100 11/24/16 08:30 62 11/24/16 07:25 98.6 67 16 126/59 (81) 100 I/O 11/24/16 11/24/16 11/24/16 11/25/16 11/25/16 11/25/16 07:00 15:00 23:00 07:00 15:00 23:00 Intake Total 360 ml 2109 ml 1750 ml 1260 ml Output Total 500 ml 900 ml 200 ml Balance -140 ml 1209 ml 1550 ml 1260 ml Intake Oral 360 ml 660 ml 600 ml 360 ml IV Total 1449 ml 1150 ml 900 ml Output Urine Total 500 ml 900 ml 200 ml # Voids 0 2 # Bowel Movements 0 0 Result Diagram: 11/24/16 0415 11/24/16 0415 Objective Remarks Patient resting comfortably. RLE: dressings clean and dry. intact. +CKS/ NVI with good dorsiflexion. neg paola. CKS in place Assessment & Plan Assessment and Plan 1) Right Distal Femur Fx s/p ORIF - POD 2 -NWB -PROM 0-90 -no quad sets or leg lifts -daily dressing changes POD 2 -knee brace at all times except for PT -DVT prophylaxis -f/u with Trish or ZEYAD in 2 weeks Discharge to [facility] today Shorty Chambers MD Nov 25, 2016 07:06
[2016-11-25 07:32] VITALS: BP 122/60; PULSE 68; RESP 16; TEMP 97.6; O2SAT 95
[2016-11-25 07:58] LABS: MEAN CELL VOLUME 95.1 FL (80.0-100.0); MEAN CORPUSCULAR HEMOGLOBIN 32.1 PG (27.0-34.0); MEAN CORPUSCULAR HGB CONC 33.8 % (32.0-36.0); PLATELET COUNT 133 TH/MM3 (150-450); RED BLOOD COUNT 2.42 MIL/MM3 (4.00-5.30); RED CELL DISTRIBUTION WIDTH 13.8 % (11.6-17.2); REVIEW FLAG FINAL
[2016-11-25 08:18] LABS: BICARBONATE 28.8 MEQ/L (21.0-32.0); POTASSIUM 3.7 MEQ/L (3.5-5.1)
[2016-11-25] MEDS: SODIUM CHLORIDE 0.9% FLUSH 5 ML FLUSH IVF SCH (09:00)
[2016-11-25] MEDS: CALCIUM/VITAMIN D 250 MG/125 U TAB PO SCH ×2 (09:41→13:14)
[2016-11-25] MEDS: DOCUSATE SODIUM 50 MG/SENNA 8.6 MG TAB PO SCH (09:41)
[2016-11-25] MEDS: ATENOLOL 25 MG TAB PO SCH (09:41)
[2016-11-25] MEDS: EZETIMIBE 10 MG TAB PO SCH (09:41)
[2016-11-25] MEDS: ENOXAPARIN SODIUM 30 MG/0.3 ML SYRINGE SQ SCH (09:42)
[2016-11-25] MEDS: CHOLECALCIFEROL (VIT D3) 1000 UNIT TAB PO SCH (09:42)
[2016-11-25] MEDS: SODIUM CHLORIDE 0.9% FLUSH 10 ML FLUSH IV FLUSH SCH (09:58)
[2016-11-25] MEDS ORDERED: DOCU100C PO (10:08)
--- NOTE | 2016-11-25 10:12 | HHI.PR ---
Subjective Remarks Hemoglobin levels 7.8 today. Sodium levels 132. Blood transfusion is able to occur at [facility], so patient is still cleared for discharge with one unit of PRBC ordered. Objective Vital Signs Date Time Temp Pulse Resp B/P (MAP) Pulse Ox O2 Delivery O2 Flow Rate FiO2 11/25/16 07:32 97.6 68 16 122/60 (80) 95 11/25/16 04:00 98.6 76 16 113/54 (73) 94 11/25/16 00:00 98.6 65 17 108/51 (70) 97 11/24/16 20:00 97.9 73 16 122/57 (78) 95 11/24/16 15:45 98.4 63 16 109/55 (73) 96 11/24/16 11:55 99.0 67 16 131/60 (83) 100 I/O 11/24/16 11/24/16 11/24/16 11/25/16 11/25/16 11/25/16 07:00 15:00 23:00 07:00 15:00 23:00 Intake Total 360 ml 2109 ml 1750 ml 1260 ml Output Total 500 ml 900 ml 200 ml Balance -140 ml 1209 ml 1550 ml 1260 ml Intake Oral 360 ml 660 ml 600 ml 360 ml IV Total 1449 ml 1150 ml 900 ml Output Urine Total 500 ml 900 ml 200 ml # Voids 0 2 # Bowel Movements 0 0 Result Diagram: 11/25/1672811/25/16728 Objective Remarks GENERAL: NAD, A&Ox3 HEAD: Normocephalic. NECK: Supple, trachea midline. No lymphadenopathy. EYES: No scleral icterus. No injection or drainage. CARDIOVASCULAR: Regular rate and rhythm without murmurs, gallops, or rubs. RESPIRATORY: Breath sounds equal bilaterally. No accessory muscle use. GASTROINTESTINAL: Abdomen soft, non-tender, nondistended. MUSCULOSKELETAL: No cyanosis, or edema. Right leg in brace. SKIN: Warm and dry. NEURO: No focal neurological deficitis. A/P Problem List: (1) Hyponatremia syndrome ICD Code: E87.1 - Hypo-osmolality and hyponatremia (2) Postoperative anemia ICD Code: D64.9 - Anemia, unspecified (3) Closed fracture of right distal femur ICD Code: S72.401A - Unspecified fracture of lower end of right femur, initial encounter for closed fracture Status: Acute (4) PVC's (premature ventricular contractions) ICD Code: I49.3 - Ventricular premature depolarization Assessment and Plan Assessment and plan 81-year-old female admitted with right femur fracture now status post surgical repair. Discharge to [facility] today. Transfuse one unit PRBC for Hgb of 7.8 today. Closed fracture of the right distal femur Status post surgical repair of right femur fracture Orthopedics following PT continued Postop wound care As needed pain treatments Anticipate discharge to rehabilitation facility History of PVCs Follow on telemetry Continue atenolol with parameters not to give if systolic blood pressure less than 110 mmHg Hyperlipidemia Continue Zetia Follow as an outpatient History of hyponatremia Hyponatremia syndrome (chronic) Follow sodium levels Continue baseline fluid restriction Chest wall skin scrapping site Follow clinically Discharge Planning Discharge to inpatient rehab Problem Qualifiers (1) Closed fracture of right distal femur: Qualified Codes: S72.401A - Unspecified fracture of lower end of right femur, initial encounter for closed fracture Lowell Cespedes MD Nov 25, 2016 10:12
[2016-11-25] MEDS ORDERED: SODIUM CHLOR 0.9% 250 ML INJ 250 ML IV ONE (10:15)
[2016-11-25] MEDS: LACTATED RINGER'S 1000 ML INJ 1,000 ML IV SCH (11:09)
[2016-11-30] MEDS ORDERED: WHEEMIS3 (14:31)
[2016-12-02] MEDS ORDERED: XARE10TA PO (09:30)
[2016-12-02] MEDS ORDERED: FAMO20TA2 PO (09:30)
[2016-12-02] MEDS ORDERED: HYDR-3516 PO (09:30)
[2016-12-02] MEDS ORDERED: ZETI10TA5 PO (09:30)
[2016-12-02] MEDS ORDERED: SENN1TAB PO (09:30)
[2016-12-02] MEDS ORDERED: ACET1TAB86 PO (09:30)
[2016-12-02] MEDS ORDERED: ATEN25TA PO (09:30)
[2016-12-02] MEDS ORDERED: VITA2000 PO (09:30)
[2016-12-02] MEDS ORDERED: CALCTAB19 PO (09:30)
[2016-12-02] MEDS ORDERED: FERR325T20 PO (09:30)
--- NOTE | 2016-12-31 18:31 | HHI.DS ---
Discharge Summary Admission Date Nov 22, 2016 at 23:10 Discharge Date: Dec 26, 2016 Admitting Diagnosis distal right femur fracture (1) Closed fracture of right distal femur ICD Code: S72.401A - Unspecified fracture of lower end of right femur, initial encounter for closed fracture Diagnosis: Principal Status: Acute (2) PVC's (premature ventricular contractions) ICD Code: I49.3 - Ventricular premature depolarization Diagnosis: Principal Status: Chronic Procedures Surgical repair of right femur fracture Brief History - From Admission Written by Annelise Nayak, acting as scribe for Dr. Carrizales on 11/23/16 at 04:45. Coming down some steps, wearing socks, slipped because of socks, and fell down. She had family call 911 and was brought here. She had a previous repair by Dr. Chambers. She denies any syncope or head injury associated with the fall. She had severe right leg pain following the fall. Denies any CP, palpitations, dizziness, diaphoresis, and nausea prior to fall. Past couple of weeks: denies fever, nausea, vomiting, diarrhea, shortness of breath, hematuria, black or bloody stool, chest pain, or diaphoresis. . Hospital Course Mrs. Willis is an 81-year-old female admitted with right femur fracture now status post surgical repair. She had surgical repair of the femur fracture and recovered slowly post op. Hyponatremia was noted and is a chronic problem for her. Fluid restrictions were placed and her hyponatremia gravitated to her baseline levels and remained stable. Anemia was also present and followed, with a low hgb of 7.8 which spontaneously improved through time, so no transfusion was needed. She was placed in an inpatient rehab at discharge and discharged 12/26/16. Pt Condition on Discharge: Stable Discharge Disposition: Rehab Inpatient Discharge Time: <= 30 minutes Discharge Instructions DIET: Follow Instructions for: As Tolerated, No Restrictions Activities you can perform: See Additionl Instruction Other Activity Instructions: Per Orthopedic recommendations Follow up Referrals: Orthopedics - 2 Weeks @ [facility] with Shorty Chambers MD PCP Follow-up - 2 Weeks New Medications: Hydrocodone-Acetaminophen (Hydrocodone-Acetaminophen) 7.5-325 mg Tab 1 TAB PO Q4H PRN for PAIN, #60 TAB 0 Refills Walker/Adult/Folding (Walker/Adult/Folding) 1 Mis Mis EA .ROUTE DIRECTED, #1 0 Refills Continued Medications: Atenolol (Atenolol) 25 Mg Tab 25 MG PO DAILY for Blood Pressure Management, #30 TAB Lowell Cespedes MD Dec 31, 2016 18:31
== END 2016-11-25 14:32 | DRG 481 ==
LOC: NEPE 20:56 → NEDA 23:10 → N06B 11-23 01:27
PROVIDERS: ADMIT Hospitalist; ATTEND Hospitalist
PROC: 0QSB04Z Reposition Right Lower Femur with Internal Fixation Device, Open Approach (ICD-10-PCS; principal; 2016-11-23 07:23)
DX: S72.451A Displaced supracondylar fracture without intracondylar extension of lower end of right femur, initial encounter for closed fracture (principal); E87.1 Hypo-osmolality and hyponatremia; I11.0 Hypertensive heart disease with heart failure; D64.9 Anemia, unspecified; I50.9 Heart failure, unspecified; E78.5 Hyperlipidemia, unspecified; I49.3 Ventricular premature depolarization; K21.9 Gastro-esophageal reflux disease without esophagitis; M35.3 Polymyalgia rheumatica; M81.0 Age-related osteoporosis without current pathological fracture; W10.9XXA Fall (on) (from) unspecified stairs and steps, initial encounter; Z85.828 Personal history of other malignant neoplasm of skin; Y92.009 Unspecified place in unspecified non-institutional (private) residence as the place of occurrence of the external cause; Z90.710 Acquired absence of both cervix and uterus
CPT/HCPCS: 29505; 71010; 73552; 73564; 76000; 80048; 80053; 82652; 85025; 85027; 86850; 86900; 86901; 86920; 93005; 94150; 96374; C1713; J0690; J1580; J1650; J2250; J2270; J2370; J2405; J3370; J7050; J7120; L1830